=== PATIENT | male | born 1965 | race Caucasian/White ===

== ENCOUNTER 2024-08-09 13:57 | Emergency (ER) | payer OTHER ==
[~2024-08-09] VITALS: Ht 182.9 cm; Wt 104.3 kg
[~2024-08-09 13:57] MED LIST: ESOM20CA60 PO
[2024-08-09 14:56] LABS: BASOPHILS # (AUTO) 0.05 K/uL (0.00-0.20); BASOPHILS % (AUTO) 0.7 % (0.0-5.0); EOSINOPHILS # (AUTO) 0.16 K/uL (0.00-0.70); EOSINOPHILS % (AUTO) 2.2 % (0.0-8.0); IMMATURE GRANULOCYTE ABSOLUTE 0.04 K/uL (0-1); LYMPHOCYTES # (AUTO) 1.1 K/uL (1.0-4.8); LYMPHOCYTES % (AUTO) 15.3 % (21.0-51.0); MEAN CORPUSCULAR HEMOGLOBIN 33.4 pg (27.0-33.0); MEAN CORPUSCULAR HGB CONC 34.8 g/dL (32.0-36.0); MEAN CORPUSCULAR VOLUME 95.9 fL (79-99); MONOCYTES # (AUTO) 0.9 K/uL (0.1-1.0); MONOCYTES % (AUTO) 12.3 % (3.0-13.0); NEUTROPHILS # (AUTO) 4.9 K/uL (1.8-7.7); NEUTROPHILS % (AUTO) 68.9 % (40.0-77.0); PLATELET COUNT (AUTO) 192 K/uL (130-400); RED BLOOD CELL COUNT(AUTO) 5.63 MIL/uL (4.50-6.20); RED CELL DISTRIBUTION WIDTH 13.2 % (11.0-15.5); WHITE BLOOD COUNT (AUTO) 7.1 K/uL (4.8-10.8)
[2024-08-09] MEDS: ondanSETRON 4MG INJ IVP ONE (14:56)
[2024-08-09] MEDS: morPHINE 4 MG SYG IVP ONE (14:57)
--- NOTE | 2024-08-09 14:57 | ERN ---
ED Note History of Present Illness Stated Complaint: SENT BY [facility] Chief Complaint: Abdominal Pain Time Seen by MD: 13:59 Dictation: 58-year-old male presents to the ED for evaluation left-sided chest pain onset 1 week ago. Patient reports left lower quadrant abdominal pain, rectal bleeding, but denies any vomiting or any other associated symptoms at this time. Patient reports he began taking 4 doses of aspirin for his chest pain and states that 4 days ago he began with left lower quadrant abdominal pain and having bright red rectal bleeding. [facility] Allergies: Coded Allergies: No Known Drug Allergies (Unverified Allergy, Unknown, 11/03/22) Home Meds Active Scripts Metronidazole (Flagyl) 375 Mg Capsule, 1 CAP PO BID for 7 Days, #14 CAP 0 Refills Prov:SREEDHAR YOST MD 08/09/24 Dicyclomine HCl (Bentyl) 20 Mg Tab, 1 TAB PO BID for irritable bowel symptoms for 10 Days, #20 TAB 0 Refills Prov:SREEDHAR YOST MD 08/09/24 Esomeprazole Magnesium (Nexium 24Hr) 20 Mg Capsule.dr, 20 MG PO DAILY, #30 CAP Prov:DINESH ALCALA MD 11/03/22 Past Medical History Past Medical History: COPD, Hypertension Additional Past Medical Hx: POLYPS Surgical History: None Surgical History Other: rib removal, Social History: Negative Review of System Dictation Constitutional: Negative for fever,chills, and weight loss Eyes: Negative for injury, pain,redness, and discharge ENT: Negative for injury,pain or swelling Cardiovascular: Positive for chest pain negative for palpitations, and edema Respiratory: Negative for shortness of breath, cough, and wheezing, Abdomen/GI: Positive for abdominal pain, rectal bleeding negative for nausea, vomiting, diarrhea, and constipation Back: Negative for injury and pain : Negative for injury, bleeding and discharge MS/Extremity: Negative for injury and deformity Skin: Negative for rash, and discoloration Neuro: Negative for headache, weakness, numbness, tingling, and seizure Psych: Negative for suicide ideation, homicidal ideation, and hallucinations Initial Vital Sign VS Vital Signs Date Time Temp Pulse Resp B/P (MAP) Pulse Ox O2 Delivery O2 Flow Rate FiO2 08/09/24 14:30 98.2 82 20 155/116 99 Room Air 0 08/09/24 14:52 21 Physical Exam Dictation General: awake, alert, NAD Head/Face: Normocephalic, atraumatic Eyes: PERRL, EOMI, vision at baseline ENT: oral cavity clear, TMs clear, no signs of infection Neck: Trachea midline, supple, no nuchal rigidity Cardiovascular: RRR, normal S1/S2, No MRGs, no JVD Respiratory: CTAB, no respiratory distress, No rales or wheezes Abdomen: Soft, LLQ tenderness, non-distended, normal bowel sounds, no guarding or rebound. Skin: Warm, dry, normal turgor, no rash MS/Extremity: Pulses equal, no cyanosis, neurovascular intact, FROM Neuro: COAx4, GCS 15, strength 5/5, CN 2-12 intact, normal cerebellar exam, normal gait, Psych: Normal behavior, mood, and affect normal Results (Laboratory/Radiology) Laboratory/Radiology Laboratory Tests Test 08/09/24 14:42 White Blood Count 7.1 K/uL (4.8-10.8) Red Blood Count 5.63 MIL/uL (4.50-6.20) Hemoglobin 18.8 g/dL (14.0-18.0) H Hematocrit 54.0 % (42-54) Mean Corpuscular Volume 95.9 fL (79-99) Mean Corpuscular Hemoglobin 33.4 pg (27.0-33.0) H Mean Corpuscular Hemoglobin Concent 34.8 g/dL (32.0-36.0) Red Cell Distribution Width 13.2 % (11.0-15.5) Platelet Count 192 K/uL (130-400) Mean Platelet Volume 10.2 fL (7.5-10.5) Immature Granulocyte % (Auto) 0.6 % (0-1) Neutrophils (%) (Auto) 68.9 % (40.0-77.0) Lymphocytes (%) (Auto) 15.3 % (21.0-51.0) L Monocytes (%) (Auto) 12.3 % (3.0-13.0) Eosinophils (%) (Auto) 2.2 % (0.0-8.0) Basophils (%) (Auto) 0.7 % (0.0-5.0) Neutrophils # (Auto) 4.9 K/uL (1.8-7.7) Lymphocytes # (Auto) 1.1 K/uL (1.0-4.8) Monocytes # (Auto) 0.9 K/uL (0.1-1.0) Eosinophils # (Auto) 0.16 K/uL (0.00-0.70) Basophils # (Auto) 0.05 K/uL (0.00-0.20) Absolute Immature Granulocyte (auto 0.04 K/uL (0-1) Nucleated Red Blood Cells 0.0 % (0.0-0.19) Prothrombin Time 10.8 SEC (9.6-11.6) Prothromb Time International Ratio 0.96 (0.85-1.15) Activated Partial Thromboplast Time 27.2 SEC (26.3-35.5) Sodium Level 141 mmol/L (136-145) Potassium Level 3.9 mmol/L (3.5-5.1) Chloride Level 105 mmol/L (101-111) Carbon Dioxide Level 28 mmol/L (21-32) Blood Urea Nitrogen 5 mg/dL (7-18) L Creatinine 1.0 mg/dL (0.5-1.3) Glomerular Filtration Rate Calc 87 mL/min (>90) Random Glucose 108 mg/dL (70-105) H Total Calcium 9.1 mg/dL (8.5-10.1) Troponin I High Sensitivity 6 ng/L (4-75) B-Type Natriuretic Peptide 22 pg/mL (0-100) Labs Reviewed?: Yes ED Course ED Course Orders Procedure Category Date Status Time Vital Signs Per CPOE 08/09/24 Transmitted Routine 14:26 Cardiac Monitoring CPOE 08/09/24 Transmitted 14:26 Pulse Ox(Continuous) RT 08/09/24 Transmitted 14:26 Saline Lock Iv CPOE 08/09/24 Transmitted 14:26 Cbc With Differential LAB 08/09/24 Complete 14:26 Partial LAB 08/09/24 Complete Thromboplastin Time 14: Prothrombin Time With LAB 08/09/24 Complete INR 14:26 Type And Screen BBK 08/09/24 Complete 14:26 Basic Metabolic Panel LAB 08/09/24 Complete 14:26 Troponin I High LAB 08/09/24 Complete Sensitivity 14:30 B-Type Natriuretic LAB 08/09/24 Complete Peptide 14:30 Chest 1vw RAD 08/09/24 Resulted 14:30 Ct Abd/Pel Wo Con CT 08/09/24 Resulted Renal/Appy 14:50 Morphine 4mg Syg PHA 08/09/24 Complete (Morphine 4mg Syg) 15:00 Ondansetron 4mg Inj PHA 08/09/24 Complete (Zofran 4mg Inj) 15:00 Ceftriaxone 2gm Vial PHA 08/09/24 Complete (Rocephin 2gm Inj) 16:30 Metronidazole (Flagyl) PHA 08/09/24 In Process 18:00 Dicyclomine Hcl PHA 08/09/24 Complete (Bentyl 20mg Tab) 18:00 Current Medications Medications (Trade) Dose Ordered Sig/Radhames Route PRN Reason Start Time Stop Time Status Last Admin Dose Admin Ceftriaxone Sodium (Rocephin 2gm Inj) 2 gm ONCE ONCE IVPB 08/09/24 16:30 08/09/24 16:31 DC 08/09/24 16:55 Dicyclomine HCl (Bentyl 20mg Tab) 20 mg ONCE ONCE PO 08/09/24 18:00 08/09/24 18:01 DC Metronidazole (flaGYL) 500 mg ONCE PO 08/09/24 18:00 08/19/24 17:59 Morphine Sulfate (morPHINE 4MG SYG) 4 mg ONCE ONCE IVP 08/09/24 15:00 08/09/24 15:01 DC 08/09/24 14:57 Ondansetron HCl (zoFRAN 4MG INJ) 4 mg ONCE ONCE IVP 08/09/24 15:00 08/09/24 15:01 DC 08/09/24 14:56 Vital Signs Date Time Temp Pulse Resp B/P (MAP) Pulse Ox O2 Delivery O2 Flow Rate FiO2 08/09/24 14:52 91 19 155/117 98 Room Air* 0 21 08/09/24 14:30 98.2 82 20 155/116 99 Room Air 0 Medical Decision Making MDM MDM: Differential diagnosis: Chest pain, rectal bleeding, diverticulitis Previous outside records reviewed: Old ER visits. Need for hospitalization: Patient does not meet criteria for hospitalization. Need for emergency major/minor surgery: No Patient's prior external medical records from other ER visits were reviewed by me as indicated. Prior testing and results from previous visits were reviewed. Prior tests were taken into account with medical decision making and resource utilization, independent historian/historians were used to obtain complete medical history. I independently interpreted the test that were performed, results were reviewed by me and considered findings on radiology if ordered. Medical management and examination interpretation discussions were had by me with other qualified healthcare professionals as indicated for the patient's care. DX & DISP Disposition: Discharge Departure Impression: Primary Impression: Acute diverticulitis of intestine Additional Impression: Lower GI bleed Condition: Stable Scripts Metronidazole (Flagyl) 375 Mg Capsule 1 CAP PO BID for 7 Days, #14 CAP 0 Refills Prov: SREEDHAR YOST MD 08/09/24 Dicyclomine HCl (Bentyl) 20 Mg Tab 1 TAB PO BID for irritable bowel symptoms for 10 Days, #20 TAB 0 Refills Prov: SREEDHAR YOST MD 08/09/24 Referrals: SELF,REFERRAL (PCP) I have reviewed, & agreed with my scribe's, documentation. (Entered by Yari Dee, acting as a scribe for Dr. Yost) I personally scribed for SREEDHAR YOST MD ([email or web address]) on 08/09/24 at 14:57. Electronically submitted by Yari Dee ([email or web address]). SREEDHAR YOST MD Aug 09, 2024 14:57
--- NOTE | 2024-08-09 15:10 | HMCIMG ---
CHEST 1VW HISTORY: Chest pain COMPARISON: 07/05/2023 FINDINGS: A frontal projection of the chest was obtained. Prominent interstitial markings are seen with possible superimposed infiltrates. The heart is normal in size. Healing fracture is seen of left mid clavicle. No evidence of aortic calcification is seen. IMPRESSION: 1. Prominent interstitial markings are seen with possible superimposed infiltrates.
--- NOTE | 2024-08-09 15:15 | HMCIMG ---
CT ABD/PEL WO CON RENAL/APPY HISTORY: Left lower abdominal pain COMPARISON: None TECHNIQUE: Multiple sequential axial images of the abdomen and pelvis were obtained from the dome of the diaphragm through symphysis pubis. Patient was not given contrast through intravenous route. Oral contrast was not given. FINDINGS: No pleural effusion is seen bilaterally. There is no evidence of parenchymal disease or pulmonary nodule of the visualized lower lungs. Degenerative changes of the thoracolumbar spine are present. The heart is not enlarged. Liver is enlarged with fatty changes measuring 18 cm. There are bilateral perinephric fat stranding which is a nonspecific finding. The liver, spleen, adrenal glands and pancreas are unremarkable. There is no evidence of hydronephrosis bilaterally. No evidence of renal stone is seen. Fecal material is seen in the colon. There are normal size retroperitoneal and mesenteric lymph nodes. No ascites is seen. No CT evidence of acute appendicitis is seen. There is mild diverticulosis. There is mesenteric fat stranding adjacent to the sigmoid colon suspicious for acute sigmoid diverticulitis. No focal abscess is seen. Pelvic sidewalls are symmetric bilaterally. Bladder is well distended without wall thickening. IMPRESSION: 1. There is mild diverticulosis. There is mesenteric fat stranding adjacent to the sigmoid colon suspicious for acute sigmoid diverticulitis. No focal abscess is seen. CT was performed with one or more following dose reduction techniques: automated exposure control, adjustment of the mA and kv according to patient's size, or use of a iterative reconstruction technique.
[2024-08-09 15:17] LABS: INR 0.96 (0.85-1.15); POTASSIUM 3.9 mmol/L (3.5-5.1); PROTHROMBIN TIME 10.8 SEC (9.6-11.6)
[2024-08-09 15:19] LABS: PARTIAL THROMBOPLASTIN TIME 27.2 SEC (26.3-35.5)
[2024-08-09] MEDS: CEFTRIAXONE 2GM VIAL IVPB ONE (16:55)
[2024-08-09] MEDS ORDERED: METR375C2 PO (17:59)
[2024-08-09] MEDS ORDERED: DICY20TA2 PO (17:59)
[2024-08-09] MEDS: DICYCLOMINE HCL 20 MG TAB PO ONE (18:13)
[2024-08-09] MEDS: metRONIDazole 500 MG TABLET PO SCH (18:14)
[2024-08-09 18:19] VITALS: BP 134/99; PULSE 87; RESP 19; TEMP 98.2; O2SAT 99
== END 2024-08-09 18:20 | disposition home or self-care (01) ==
LOC: EDH 13:57 → EEVIPCON 13:57 → EDH 18:20
DX: K57.32 Diverticulitis of large intestine without perforation or abscess without bleeding (principal); J44.9 Chronic obstructive pulmonary disease, unspecified; I10 Essential (primary) hypertension; Z79.899 Other long term (current) drug therapy
CPT/HCPCS: 99285; 74176; 96365; 96375; 71045; 84484; 80048; 83880; 85025; 85610; 85730; 86850; 86900; 86901; 36415; J0696; J2405; J2270